=== PATIENT | male | born 1965 | race African-American/Black ===

== ENCOUNTER 2020-12-31 07:17 | Inpatient (IN) | payer MEDICARE ==
[2020-12-31 08:48] LABS: #Eosinphils 0.1 10x3/uL (0.0-0.5); #Monocytes 1.3 10x3/uL (0.0-1.1); #Neutrophils 10.4 10x3/uL (1.5-8.4); %Basophils 0.3 % (0.0-2.0); %Eosinophils 0.8 % (0.0-6.0); %Lymphocytes 7.1 % (18.0-47.0); %Monocytes 9.7 % (0.0-10.0); %Neutrophils 80.9 % (40.0-75.0); Hemoglobin 10.8 g/dL (13.5-17.5); Mean Corpuscular HGB CONC 30.1 g/dL (32.0-36.0); Mean Corpuscular Hemoglobin 30.4 pg (27.0-33.0); Mean Corpuscular Volume 101.1 fl (81.2-95.1); Mean Platelet Volume 10.7 fl (7.4-10.4); Platelet Count 364 10x3/uL (150-450); RBC Distribution Width 15.9 % (11.5-14.5); Red Blood Cell (RBC) Count 3.55 10x6/uL (4.32-5.72); White Blood Cell (WBC) Count 12.9 10x3/uL (3.5-10.5)
[2020-12-31] MEDS ORDERED: Cefepime 2 GM VIAL ONE (08:58)
[2020-12-31 09:01] LABS: CK (CPK) 122 U/L (30-200); CRP (Inflammatory) 17.68 mg/dL (= or < 0.5); Magnesium 2.1 mg/dL (1.6-2.6)
[2020-12-31 09:03] LABS: ALT (SGPT) 7 U/L (8-55); AST (SGOT) 10 U/L (5-34); Albumin 3.7 g/dL (3.5-5.0); Alkaline Phosphatase 84 U/L (40-110); Anion Gap 18 mmol/L (10-20); BUN (Urea Nitrogen) 22 mg/dL (8.4-25.7); Bilirubin, Total 0.4 mg/dL (0.2-1.2); Calc. Creatinine Clearance 0 mL/min (70-130); Calcium 9.8 mg/dL (7.8-10.44); Carbon Dioxide 31 mmol/L (22-29); Chloride 93 mmol/L (98-107); Globulin 5.4 g/dL (2.4-3.5); Glucose 160 mg/dL (70-105); Potassium 3.8 mmol/L (3.5-5.1); Protein, Total 9.1 g/dL (6.0-8.3); Sodium 138 mmol/L (136-145)
[2020-12-31] MEDS ORDERED: Acetaminophen 325 MG TAB PO PRN (10:21)
[2020-12-31] MEDS ORDERED: Ondansetron PF 4 MG/2 ML Vial IVP PRN (10:21)
[2020-12-31] MEDS ORDERED: Senokot S 8.6-50 MG TAB PO PRN (10:21)
[2020-12-31] MEDS ORDERED: Vancomycin HCl 1 GM in Sodium Chloride 0.9% 250 ML 250 ML IVPB SCH (10:45)
[2020-12-31 12:07] LABS: PTT 27.1 sec (22.0-33.0); Prothrombin Time 11.5 sec (9.5-12.1)
[2020-12-31 13:17] LABS: SARS-CoV-2 NAA Rapid Test Not Detected (NotDetected)
[2020-12-31 14:09] VITALS: BMI 32.7
[2020-12-31] MEDS ORDERED: Vancomycin HCl 1.25 GM in Sodium Chloride 0.9% 250 ML 250 ML IVPB SCH (14:45)
[2020-12-31] MEDS ORDERED: Vancomycin HCl 750 MG in Sodium Chloride 0.9% 250 ML 250 ML IVPB SCH (14:45)
[2020-12-31] MEDS ORDERED: Vancomycin 1 GM in Premix Bag 1 BAG IVPB SCH (14:45)
[2020-12-31] MEDS ORDERED: Vancomycin HCl 1.5 GM in Sodium Chloride 0.9% 250 ML 300 ML IVPB SCH (14:45)
[2020-12-31] MEDS ORDERED: HOLD VANCOMYCIN FOR LEVEL >20 FS SCH (14:45)
[2020-12-31] MEDS: Calcium Acetate 667 MG CAP PO SCH ×2 (14:50→16:49)
[2020-12-31] MEDS ORDERED: Heparin 10,000 UNITS/ 10 ML VIAL SLOW IVP PRN (14:57)
[2020-12-31] MEDS ORDERED: Vancomycin HCl 500 MG in Sodium Chloride 0.9% 100 ML IVPB SCH (15:00)
[2020-12-31] MEDS ORDERED: EPOETIN ALFA-EPBX (ESRD) 4,000 UNIT/ML VIAL IVP PRN (15:01)
[2021-01-01] MEDS: Heparin 5,000 UNITS/ML VIAL SC SCH ×3 (02:26→21:37)
[2021-01-01 05:16] LABS: #Eosinphils 0.2 10x3/uL (0.0-0.5); #Monocytes 1.3 10x3/uL (0.0-1.1); #Neutrophils 9.6 10x3/uL (1.5-8.4); %Basophils 0.3 % (0.0-2.0); %Eosinophils 1.5 % (0.0-6.0); %Monocytes 10.2 % (0.0-10.0); Hemoglobin 10.3 g/dL (13.5-17.5); Mean Corpuscular HGB CONC 30.3 g/dL (32.0-36.0); Mean Corpuscular Hemoglobin 30.2 pg (27.0-33.0); Mean Corpuscular Volume 99.7 fl (81.2-95.1); Mean Platelet Volume 10.3 fl (7.4-10.4); Platelet Count 359 10x3/uL (150-450); RBC Distribution Width 15.9 % (11.5-14.5); Red Blood Cell (RBC) Count 3.41 10x6/uL (4.32-5.72); White Blood Cell (WBC) Count 12.5 10x3/uL (3.5-10.5)
[2021-01-01 05:51] LABS: Vancomycin, Random 20.4 ug/mL (See Comment)
[2021-01-01 05:53] LABS: Anion Gap 17 mmol/L (10-20); BUN (Urea Nitrogen) 27 mg/dL (8.4-25.7); Calc. Creatinine Clearance 13 mL/min (70-130); Calcium 9.4 mg/dL (7.8-10.44); Carbon Dioxide 27 mmol/L (22-29); Chloride 96 mmol/L (98-107); Glucose 115 mg/dL (70-105); Potassium 3.5 mmol/L (3.5-5.1); Sodium 136 mmol/L (136-145)
[2021-01-01] MEDS ORDERED: Bupivacaine PF 0.5% 30 ML VIAL ONE (08:29)
[2021-01-01] MEDS ORDERED: Fentanyl 100 MCG/2 ML VIAL ONE ×2 (08:38→09:11)
[2021-01-01] MEDS ORDERED: Ondansetron PF 4 MG/2 ML Vial ONE (08:38)
[2021-01-01] MEDS ORDERED: PROPOFOL 20 ML ONE (08:38)
[2021-01-01] MEDS ORDERED: PHENYLEPHRINE-NS 100 MCG/ML 10 ML SYRINGE ONE (09:20)
[2021-01-01] MEDS: HYDROcodone/Acetaminophen 5/325 mg Tablet PO PRN ×2 (12:51→18:14)
[2021-01-01] MEDS: Calcium Acetate 667 MG CAP PO SCH ×4 (13:13→18:19)
[2021-01-01] MEDS ORDERED: Cefepime 0.5 GM, Admixture Fee 1 EACH in Sodium Chloride 0.9% 100 ML IVPB SCH (15:00)
[2021-01-02 05:22] LABS: ALT (SGPT) Less than 6 U/L (8-55); AST (SGOT) 11 U/L (5-34); Albumin 2.9 g/dL (3.5-5.0); Alkaline Phosphatase 87 U/L (40-110); Anion Gap 14 mmol/L (10-20); BUN (Urea Nitrogen) 16 mg/dL (8.4-25.7); Bilirubin, Total 0.3 mg/dL (0.2-1.2); Calc. Creatinine Clearance 20 mL/min (70-130); Calcium 9.1 mg/dL (7.8-10.44); Carbon Dioxide 29 mmol/L (22-29); Chloride 96 mmol/L (98-107); Globulin 4.5 g/dL (2.4-3.5); Glucose 155 mg/dL (70-105); Potassium 3.9 mmol/L (3.5-5.1); Protein, Total 7.4 g/dL (6.0-8.3); Sodium 135 mmol/L (136-145)
[2021-01-02 05:50] LABS: #Basophils 0.1 10x3/uL (0.0-0.2); #Eosinphils 0.2 10x3/uL (0.0-0.5); #Monocytes 1.3 10x3/uL (0.0-1.1); %Basophils 0.4 % (0.0-2.0); %Eosinophils 1.7 % (0.0-6.0); %Lymphocytes 8.6 % (18.0-47.0); %Monocytes 9.5 % (0.0-10.0); %Neutrophils 78.5 % (40.0-75.0); Hemoglobin 10.1 g/dL (13.5-17.5); Mean Corpuscular HGB CONC 29.5 g/dL (32.0-36.0); Mean Corpuscular Hemoglobin 30.1 pg (27.0-33.0); Mean Corpuscular Volume 101.8 fl (81.2-95.1); Mean Platelet Volume 10.8 fl (7.4-10.4); Platelet Count 345 10x3/uL (150-450); Red Blood Cell (RBC) Count 3.36 10x6/uL (4.32-5.72)
[2021-01-02] MEDS: Calcium Acetate 667 MG CAP PO SCH ×2 (08:02→12:35)
[2021-01-02] MEDS: Heparin 5,000 UNITS/ML VIAL SC SCH (08:02)
[2021-01-02 13:06] VITALS: BP 118/62; TEMP 96.8
== END 2021-01-02 14:53 | disposition home or self-care (01) | DRG 617 ==
LOC: CSHERS 07:17 → CSHTELE 12:59
PROVIDERS: ADMIT Internal Medicine; ATTEND Family Medicine
PROC: 0Y6N0Z4 Detachment at Left Foot, Complete 1st Ray, Open Approach (ICD-10-PCS; principal; 2021-01-01)
PROC: 0Y6N0Z5 Detachment at Left Foot, Complete 2nd Ray, Open Approach (ICD-10-PCS; 2021-01-01)
DX: E11.621 Type 2 diabetes mellitus with foot ulcer (principal); M86.172 Other acute osteomyelitis, left ankle and foot; E11.52 Type 2 diabetes mellitus with diabetic peripheral angiopathy with gangrene; I96 Gangrene, not elsewhere classified; I13.2 Hypertensive heart and chronic kidney disease with heart failure and with stage 5 chronic kidney disease, or end stage renal disease; I50.42 Chronic combined systolic (congestive) and diastolic (congestive) heart failure; N18.6 End stage renal disease; L97.529 Non-pressure chronic ulcer of other part of left foot with unspecified severity; E11.22 Type 2 diabetes mellitus with diabetic chronic kidney disease; Z99.2 Dependence on renal dialysis; E11.40 Type 2 diabetes mellitus with diabetic neuropathy, unspecified; E78.5 Hyperlipidemia, unspecified; D63.1 Anemia in chronic kidney disease
CPT/HCPCS: 36415; 36416; 71045; 80048; 80053; 80202; 82550; 83605; 83735; 85025; 85610; 85652; 85730; 86140; 86850; 86900; 86901; 87040; 87070; 87076; 87077; 87186; 87205; 88305; 90935; 93005; 94760; 96365; 96366; 96367; G0257; J0692; J1644; J2405; J2704; J3010; J3370; J3490; S0020; U0002

== ENCOUNTER 2021-03-22 15:14 | Outpatient (CLI) | payer MEDICARE | END 2021-03-22 15:15 | disposition home or self-care (01) | LOC: CSHCT 15:14 | PROVIDERS: ATTEND Neurological Surgery | DX: I61.9 Nontraumatic intracerebral hemorrhage, unspecified (principal) | CPT/HCPCS: 70450 ==

== ENCOUNTER 2021-04-08 21:00 | Inpatient (IN) | payer MEDICARE, SELFPAY ==
[2021-04-08 21:54] LABS: #Eosinphils 0.1 10x3/uL (0.0-0.5); #Monocytes 0.6 10x3/uL (0.0-1.1); #Neutrophils 5.5 10x3/uL (1.5-8.4); %Basophils 0.4 % (0.0-2.0); %Eosinophils 1.1 % (0.0-6.0); %Lymphocytes 12.8 % (18.0-47.0); %Neutrophils 77.1 % (40.0-75.0); Hemoglobin 7.5 g/dL (13.5-17.5); Mean Corpuscular HGB CONC 30.5 g/dL (32.0-36.0); Mean Corpuscular Hemoglobin 31.1 pg (27.0-33.0); Mean Corpuscular Volume 102.1 fl (81.2-95.1); Mean Platelet Volume 10.9 fl (7.4-10.4); Platelet Count 413 10x3/uL (150-450); RBC Distribution Width 16.7 % (11.5-14.5); Red Blood Cell (RBC) Count 2.41 10x6/uL (4.32-5.72); White Blood Cell (WBC) Count 7.1 10x3/uL (3.5-10.5)
[2021-04-08 22:00] LABS: ALT (SGPT) 20 U/L (8-55); AST (SGOT) 15 U/L (5-34); Albumin 4.2 g/dL (3.5-5.0); Alkaline Phosphatase 86 U/L (40-110); Anion Gap 26 mmol/L (10-20); BUN (Urea Nitrogen) 114 mg/dL (8.4-25.7); Bilirubin, Total 0.7 mg/dL (0.2-1.2); Calc. Creatinine Clearance 0 mL/min (70-130); Calcium 8.4 mg/dL (7.8-10.44); Carbon Dioxide 18 mmol/L (22-29); Chloride 103 mmol/L (98-107); Globulin 4.3 g/dL (2.4-3.5); Glucose 97 mg/dL (70-105); Protein, Total 8.5 g/dL (6.0-8.3); Sodium 140 mmol/L (136-145)
[2021-04-08 22:01] LABS: Potassium 6.9 mmol/L (3.5-5.1)
[2021-04-09 01:23] LABS: Magnesium 2.5 mg/dL (1.6-2.6)
[2021-04-09 01:53] LABS: Hep B Surf Ag Non-Reactive S/CO (NonReactive)
[2021-04-09 01:55] LABS: HBSAg Index 0.22 S/CO (0-0.99)
[2021-04-09] MEDS ORDERED: Prevnar 13-Val Conj/PF 0.5 ML SYRINGE IM ONE (06:00)
[2021-04-09 06:23] VITALS: BMI 31.6
[2021-04-09 08:22] LABS: #Eosinphils 0.1 10x3/uL (0.0-0.5); #Monocytes 0.7 10x3/uL (0.0-1.1); #Neutrophils 4.9 10x3/uL (1.5-8.4); %Basophils 0.4 % (0.0-2.0); %Eosinophils 1.9 % (0.0-6.0); %Lymphocytes 15.8 % (18.0-47.0); %Monocytes 9.6 % (0.0-10.0); %Neutrophils 71.9 % (40.0-75.0); Hemoglobin 8.6 g/dL (13.5-17.5); Mean Corpuscular HGB CONC 31.9 g/dL (32.0-36.0); Mean Corpuscular Hemoglobin 30.9 pg (27.0-33.0); Mean Corpuscular Volume 97.1 fl (81.2-95.1); Mean Platelet Volume 10.3 fl (7.4-10.4); Platelet Count 325 10x3/uL (150-450); RBC Distribution Width 17.1 % (11.5-14.5); Red Blood Cell (RBC) Count 2.78 10x6/uL (4.32-5.72); White Blood Cell (WBC) Count 6.8 10x3/uL (3.5-10.5)
[2021-04-09 08:43] LABS: Anion Gap 19 mmol/L (10-20); BUN (Urea Nitrogen) 58 mg/dL (8.4-25.7); Calc. Creatinine Clearance 10 mL/min (70-130); Calcium 8.3 mg/dL (7.8-10.44); Carbon Dioxide 24 mmol/L (22-29); Chloride 101 mmol/L (98-107); Glucose 83 mg/dL (70-105); Potassium 4.5 mmol/L (3.5-5.1); Sodium 139 mmol/L (136-145)
[2021-04-09] MEDS: Carvedilol 3.125 MG TAB PO SCH (12:23)
[2021-04-09] MEDS: Aspirin 325 mg Enteric Coated Tablet PO SCH (12:23)
[2021-04-09 13:22] LABS: HBSAB Concentration 39.23 mIU/mL; Hep B Surf AB Reactive (NonReactive)
[2021-04-09] MEDS: Heparin 5,000 UNITS/ML VIAL SC SCH ×2 (15:04→20:23)
[2021-04-09 17:25] LABS: INR-International Normal Ratio 1.1; PTT 27.6 sec (22.0-33.0); Prothrombin Time 12.6 sec (9.5-12.1)
[2021-04-09 17:29] LABS: #Eosinphils 0.2 10x3/uL (0.0-0.5); #Monocytes 0.7 10x3/uL (0.0-1.1); #Neutrophils 5.4 10x3/uL (1.5-8.4); %Basophils 0.4 % (0.0-2.0); %Eosinophils 2.1 % (0.0-6.0); %Lymphocytes 10.9 % (18.0-47.0); %Monocytes 9.5 % (0.0-10.0); %Neutrophils 76.5 % (40.0-75.0); Hemoglobin 8.7 g/dL (13.5-17.5); Mean Corpuscular HGB CONC 31.8 g/dL (32.0-36.0); Mean Corpuscular Hemoglobin 31.4 pg (27.0-33.0); Mean Corpuscular Volume 98.9 fl (81.2-95.1); Mean Platelet Volume 10.3 fl (7.4-10.4); Platelet Count 337 10x3/uL (150-450); RBC Distribution Width 17.2 % (11.5-14.5); Red Blood Cell (RBC) Count 2.77 10x6/uL (4.32-5.72); White Blood Cell (WBC) Count 7.1 10x3/uL (3.5-10.5)
[2021-04-09 17:39] LABS: ALT (SGPT) 17 U/L (8-55); AST (SGOT) 12 U/L (5-34); Albumin 3.5 g/dL (3.5-5.0); Alkaline Phosphatase 74 U/L (40-110); Anion Gap 18 mmol/L (10-20); BUN (Urea Nitrogen) 60 mg/dL (8.4-25.7); Bilirubin, Total 0.8 mg/dL (0.2-1.2); Calc. Creatinine Clearance 10 mL/min (70-130); Carbon Dioxide 23 mmol/L (22-29); Chloride 100 mmol/L (98-107); Globulin 3.6 g/dL (2.4-3.5); Glucose 107 mg/dL (70-105); Potassium 5.4 mmol/L (3.5-5.1); Protein, Total 7.1 g/dL (6.0-8.3); Sodium 136 mmol/L (136-145)
[2021-04-09 17:56] LABS: SARS-CoV-2 NAA Rapid Test Not Detected (NotDetected)
[2021-04-09 18:24] LABS: Actual Bicarbonate (HCO3a) 25.4 mEq/L (22-28); Base Excess (BEa) 1.1 mEq/L (-2.0 to +3.0); CO2 Tension 39.2 mmHg (35.0-45.0); Calcium, Ionized (arterial) 0.98 mmol/L (1.12-1.30); Carboxyhemoglobin (COHb) 1.5 gm% (0.0-3.0); Hemoglobin (Hb) 10.5 g/dL (14.0-18.0); O2 Tension (PaO2), arterial 66.8 mmHg (80.0-100.0); Potassium - ABG Lab 5.2 mmol/L (3.70-5.30); Puncture Site RRA; pH, Arterial 7.43 (7.35-7.45)
[2021-04-09 21:42] LABS: SARS-CoV-2 PCR by NAA Not Detected (NotDetected)
[2021-04-10] MEDS: Simvastatin 10 MG TAB PO SCH ×2 (00:37→21:34)
[2021-04-10] MEDS: Heparin 5,000 UNITS/ML VIAL SC SCH ×5 (00:37→21:34)
[2021-04-10 04:48] LABS: ALT (SGPT) 16 U/L (8-55); AST (SGOT) 14 U/L (5-34); Albumin 3.4 g/dL (3.5-5.0); Alkaline Phosphatase 77 U/L (40-110); Anion Gap 16 mmol/L (10-20); BUN (Urea Nitrogen) 26 mg/dL (8.4-25.7); Bilirubin, Total 0.8 mg/dL (0.2-1.2); Calc. Creatinine Clearance 16 mL/min (70-130); Calcium 8.3 mg/dL (7.8-10.44); Carbon Dioxide 25 mmol/L (22-29); Chloride 100 mmol/L (98-107); Globulin 3.4 g/dL (2.4-3.5); Glucose 111 mg/dL (70-105); Potassium 4.2 mmol/L (3.5-5.1); Protein, Total 6.8 g/dL (6.0-8.3); Sodium 137 mmol/L (136-145)
[2021-04-10 05:01] LABS: #Eosinphils 0.2 10x3/uL (0.0-0.5); #Monocytes 0.7 10x3/uL (0.0-1.1); %Basophils 0.5 % (0.0-2.0); %Eosinophils 2.1 % (0.0-6.0); %Lymphocytes 8.9 % (18.0-47.0); %Neutrophils 79.1 % (40.0-75.0); Hemoglobin 9.4 g/dL (13.5-17.5); Mean Corpuscular HGB CONC 31.8 g/dL (32.0-36.0); Mean Corpuscular Hemoglobin 30.7 pg (27.0-33.0); Mean Corpuscular Volume 96.7 fl (81.2-95.1); Mean Platelet Volume 10.2 fl (7.4-10.4); Platelet Count 342 10x3/uL (150-450); RBC Distribution Width 16.7 % (11.5-14.5); Red Blood Cell (RBC) Count 3.06 10x6/uL (4.32-5.72); White Blood Cell (WBC) Count 7.6 10x3/uL (3.5-10.5)
[2021-04-10] MEDS: Carvedilol 3.125 MG TAB PO SCH (08:12)
[2021-04-10] MEDS: Aspirin 325 mg Enteric Coated Tablet PO SCH (08:12)
[2021-04-11 05:12] LABS: Anion Gap 16 mmol/L (10-20); BUN (Urea Nitrogen) 33 mg/dL (8.4-25.7); Calc. Creatinine Clearance 13 mL/min (70-130); Carbon Dioxide 25 mmol/L (22-29); Chloride 100 mmol/L (98-107); Glucose 91 mg/dL (70-105); Potassium 4.5 mmol/L (3.5-5.1); Sodium 136 mmol/L (136-145)
[2021-04-11] MEDS: Heparin 5,000 UNITS/ML VIAL SC SCH (08:16)
[2021-04-11] MEDS: Aspirin 325 mg Enteric Coated Tablet PO SCH (08:16)
[2021-04-11] MEDS: Carvedilol 3.125 MG TAB PO SCH (08:16)
[2021-04-11 08:54] VITALS: BP 152/77; TEMP 98
== END 2021-04-11 14:45 | disposition home or self-care (01) | DRG 640 ==
LOC: CSHERS 21:00 → CSHTELE 04-09 00:31 → OBSVTOIN 04-09 00:39 → INTOOBSV 04-09 00:39 → CSHTELE 04-09 00:39
PROVIDERS: ADMIT Family Medicine; ATTEND Internal Medicine
PROC: 5A1D70Z Performance of Urinary Filtration, Intermittent, Less than 6 Hours Per Day (ICD-10-PCS; principal; 2021-04-09)
DX: E87.70 Fluid overload, unspecified (principal); N18.6 End stage renal disease; I12.0 Hypertensive chronic kidney disease with stage 5 chronic kidney disease or end stage renal disease; G93.49 Other encephalopathy; Z20.822 Contact with and (suspected) exposure to COVID-19; E87.5 Hyperkalemia; D63.1 Anemia in chronic kidney disease; E11.51 Type 2 diabetes mellitus with diabetic peripheral angiopathy without gangrene; R19.7 Diarrhea, unspecified; E87.2 Acidosis; E11.22 Type 2 diabetes mellitus with diabetic chronic kidney disease; Z88.0 Allergy status to penicillin; Z79.899 Other long term (current) drug therapy; Z79.82 Long term (current) use of aspirin; Z99.2 Dependence on renal dialysis; Z89.422 Acquired absence of other left toe(s); Z91.15 Patient's noncompliance with renal dialysis
CPT/HCPCS: 36415; 36416; 36430; 36600; 71045; 74176; 80048; 80053; 82140; 82805; 83735; 83880; 84443; 85025; 85610; 85730; 86706; 86850; 86900; 86901; 87045; 87046; 87081; 87177; 87340; 87427; 87449; 90935; 93005; 93010; 94660; 94760; G0257; G0378; J1644; P9016; U0002; U0003; U0005

== ENCOUNTER 2021-05-31 11:01 | Inpatient (IN) | payer MEDICARE, SELFPAY ==
[2021-05-31 12:10] LABS: Bilirubin Neg (Negative); Blood, Urine Negative (Negative); Clarity Clear (Clear); Glucose, Urine (Dipstick) 50 mg/dL (Negative); Ketone, Urine Negative (Negative); Leukocyte Negative (Negative); Nitrite Negative (Negative); Protein, Urine (Dipstick) 100 mg/dl (Neg-Trace); Specific Gravity, Urine 1.015 (1.002-1.036); Urobilinogen Normal mg/dL (Less than 2)
[2021-05-31 12:10] LABS: #Eosinphils 0.2 10x3/uL (0.0-0.5); #Monocytes 0.7 10x3/uL (0.0-1.1); %Basophils 0.3 % (0.0-2.0); %Eosinophils 1.5 % (0.0-6.0); %Lymphocytes 10.1 % (18.0-47.0); %Monocytes 7.1 % (0.0-10.0); %Neutrophils 80.5 % (40.0-75.0); Hemoglobin 8.9 g/dL (13.5-17.5); Mean Corpuscular HGB CONC 30.7 g/dL (32.0-36.0); Mean Corpuscular Hemoglobin 30.5 pg (27.0-33.0); Mean Corpuscular Volume 99.3 fl (81.2-95.1); Mean Platelet Volume 10.3 fl (7.4-10.4); Platelet Count 441 10x3/uL (150-450); RBC Distribution Width 16.5 % (11.5-14.5); Red Blood Cell (RBC) Count 2.92 10x6/uL (4.32-5.72); White Blood Cell (WBC) Count 9.9 10x3/uL (3.5-10.5)
[2021-05-31 12:17] LABS: Bacteria/HPF None Seen HPF (None Seen); RBC/HPF 0-3 HPF (0-3); Squamous Epithelial None Seen HPF (0-3); WBC/HPF 0-3 HPF (0-3)
[2021-05-31 12:21] LABS: ALT (SGPT) 7 U/L (8-55); AST (SGOT) 8 U/L (5-34); Albumin 4.1 g/dL (3.5-5.0); Alkaline Phosphatase 70 U/L (40-110); Anion Gap 20 mmol/L (10-20); BUN (Urea Nitrogen) 41 mg/dL (8.4-25.7); Bilirubin, Total 0.9 mg/dL (0.2-1.2); Calc. Creatinine Clearance 0 mL/min (70-130); Calcium 10.7 mg/dL (7.8-10.44); Carbon Dioxide 29 mmol/L (22-29); Chloride 95 mmol/L (98-107); Globulin 4.7 g/dL (2.4-3.5); Glucose 93 mg/dL (70-105); Potassium 4.5 mmol/L (3.5-5.1); Protein, Total 8.8 g/dL (6.0-8.3); Sodium 139 mmol/L (136-145)
[2021-05-31] MEDS ORDERED: Ondansetron ODT 4 MG TAB PO PRN (15:14)
[2021-05-31] MEDS ORDERED: Acetaminophen 650 MG Suppository PR PRN (15:14)
[2021-05-31] MEDS ORDERED: Acetaminophen 325 MG TAB PO PRN (15:14)
[2021-05-31] MEDS ORDERED: Vancomycin 1 GM in Premix Bag 1 BAG IVPB SCH (15:30)
[2021-05-31 15:48] LABS: SARS-CoV-2 NAA Rapid Test Not Detected (NotDetected)
[2021-05-31] MEDS ORDERED: VANCOMYCIN 1.75 GM/350 ML BAG 1.75 GM in Premix Bag 1 BAG IVPB SCH (16:15)
[2021-05-31] MEDS ORDERED: Cefepime 2 GM VIAL ONE (16:17)
[2021-05-31] MEDS ORDERED: Dextrose 50% Abboject 50 ML SYRINGE SLOW IVP PRN (17:05)
[2021-05-31] MEDS ORDERED: Insulin Regular 300 UNITS/3 ML VIAL SC PRN ×2 (17:05)
[2021-05-31] MEDS ORDERED: Dextrose 5% in Water 1,000 ML IV PRN (17:05)
[2021-05-31] MEDS ORDERED: hydrALAZINE 20 MG/ML VIAL SLOW IVP PRN (17:07)
[2021-05-31] MEDS ORDERED: Nitroglycerin 2% Ointment 1 INCH/1 GM Packet TOP SCH (21:00)
[2021-05-31] MEDS ORDERED: Amlodipine 5 MG TAB PO SCH (21:00)
[2021-05-31] MEDS ORDERED: Nitroglycerin 2% Ointment 1 INCH/1 GM Packet ONE (21:36)
[2021-05-31] MEDS ORDERED: Amlodipine 5 MG TAB ONE (21:37)
[2021-05-31] MEDS ORDERED: metroNIDAZOLE 500 MG/100 ML BAG ONE (21:37)
[2021-05-31] MEDS ORDERED: Heparin 5,000 UNITS/ML VIAL ONE (21:37)
[2021-05-31] MEDS: Heparin 5,000 UNITS/ML VIAL SC SCH (21:40)
[2021-05-31] MEDS: metroNIDAZOLE 500 MG in Premix Bag 1 BAG IVPB SCH (21:53)
[2021-06-01 04:25] LABS: #Basophils 0.1 10x3/uL (0.0-0.2); #Eosinphils 0.3 10x3/uL (0.0-0.5); #Monocytes 0.7 10x3/uL (0.0-1.1); #Neutrophils 7.4 10x3/uL (1.5-8.4); %Basophils 0.5 % (0.0-2.0); %Eosinophils 3.1 % (0.0-6.0); %Lymphocytes 10.5 % (18.0-47.0); %Monocytes 7.2 % (0.0-10.0); %Neutrophils 78.3 % (40.0-75.0); Mean Corpuscular HGB CONC 29.4 g/dL (32.0-36.0); Mean Corpuscular Hemoglobin 29.6 pg (27.0-33.0); Mean Corpuscular Volume 100.7 fl (81.2-95.1); Mean Platelet Volume 10.1 fl (7.4-10.4); Platelet Count 461 10x3/uL (150-450); RBC Distribution Width 16.3 % (11.5-14.5); White Blood Cell (WBC) Count 9.4 10x3/uL (3.5-10.5)
[2021-06-01 04:48] LABS: Anion Gap 21 mmol/L (10-20); BUN (Urea Nitrogen) 45 mg/dL (8.4-25.7); Calc. Creatinine Clearance 0 mL/min (70-130); Calcium 9.9 mg/dL (7.8-10.44); Carbon Dioxide 26 mmol/L (22-29); Chloride 97 mmol/L (98-107); Glucose 110 mg/dL (70-105); Potassium 4.5 mmol/L (3.5-5.1); Sodium 139 mmol/L (136-145)
[2021-06-01] MEDS ORDERED: metroNIDAZOLE 500 MG/100 ML BAG ONE (05:25)
[2021-06-01] MEDS: metroNIDAZOLE 500 MG in Premix Bag 1 BAG IVPB SCH ×3 (06:00→22:34)
[2021-06-01 06:08] LABS: Platelet Morphology Comment Appears Increased
[2021-06-01 06:09] LABS: Anisocytosis SLIGHT = 6-15 cells (100X) (0-5/hpf); Elliptocytes SLIGHT = 2-5 cells (100X) (0-1/hpf); Hypochromia SLIGHT = 6-15 cells (100X) (0-5/hpf); Macrocytosis SLIGHT = 6-15 cells (100X) (0-5/hpf); Microcytosis SLIGHT = 6-15 cells (100X) (0-5/hpf)
[2021-06-01] MEDS: Heparin 5,000 UNITS/ML VIAL SC SCH ×2 (12:31→21:33)
[2021-06-01 13:22] LABS: Hemoglobin A1c 4.9 % (4.0-6.0)
[2021-06-01] MEDS ORDERED: EPOETIN ALFA-EPBX (ESRD) 4,000 UNIT/ML VIAL IVP PRN (13:34)
[2021-06-01] MEDS: Cefepime 0.5 GM, Admixture Fee 1 EACH in Sodium Chloride 0.9% 100 ML IVPB SCH (17:39)
[2021-06-01] MEDS ORDERED: FLU VACC QS2021-22(6MOS UP)/PF 60 MCG/0.5 ML SYRINGE IM ONE (19:00)
[2021-06-01] MEDS ORDERED: Vancomycin 1 GM in Premix Bag 1 BAG IVPB SCH (19:45)
[2021-06-01] MEDS ORDERED: Vancomycin HCl 500 MG in Sodium Chloride 0.9% 100 ML IVPB SCH (19:45)
[2021-06-01] MEDS ORDERED: Vancomycin HCl 1.25 GM in Sodium Chloride 0.9% 250 ML 250 ML IVPB SCH (19:45)
[2021-06-01] MEDS ORDERED: Vancomycin HCl 750 MG in Sodium Chloride 0.9% 250 ML 250 ML IVPB SCH (19:45)
[2021-06-01] MEDS ORDERED: HOLD VANCOMYCIN FOR LEVEL >20 FS SCH (19:45)
[2021-06-01] MEDS ORDERED: Simvastatin 10 MG TAB PO SCH (21:00)
[2021-06-01] MEDS: Ondansetron PF 4 MG/2 ML Vial IVP PRN (21:43)
[2021-06-01 21:53] LABS: Vancomycin, Random 17.4 ug/mL (See Comment)
[2021-06-02] MEDS: Ondansetron PF 4 MG/2 ML Vial IVP PRN (00:07)
[2021-06-02 04:05] LABS: #Eosinphils 0.1 10x3/uL (0.0-0.5); #Monocytes 0.8 10x3/uL (0.0-1.1); #Neutrophils 6.9 10x3/uL (1.5-8.4); %Basophils 0.3 % (0.0-2.0); %Eosinophils 1.6 % (0.0-6.0); %Lymphocytes 9.5 % (18.0-47.0); %Monocytes 8.9 % (0.0-10.0); Hemoglobin 8.7 g/dL (13.5-17.5); Mean Corpuscular HGB CONC 28.5 g/dL (32.0-36.0); Mean Corpuscular Hemoglobin 29.4 pg (27.0-33.0); Mean Platelet Volume 10.3 fl (7.4-10.4); Platelet Count 414 10x3/uL (150-450); Red Blood Cell (RBC) Count 2.96 10x6/uL (4.32-5.72); White Blood Cell (WBC) Count 8.8 10x3/uL (3.5-10.5)
[2021-06-02 04:23] LABS: Anion Gap 17 mmol/L (10-20); BUN (Urea Nitrogen) 20 mg/dL (8.4-25.7); Calc. Creatinine Clearance 14 mL/min (70-130); Calcium 9.6 mg/dL (7.8-10.44); Carbon Dioxide 27 mmol/L (22-29); Chloride 96 mmol/L (98-107); Glucose 100 mg/dL (70-105); Potassium 4.4 mmol/L (3.5-5.1); Sodium 136 mmol/L (136-145)
[2021-06-02] MEDS: metroNIDAZOLE 500 MG in Premix Bag 1 BAG IVPB SCH ×3 (05:38→22:37)
[2021-06-02 06:28] LABS: Platelet Morphology Comment Appears Adequate
[2021-06-02 06:29] LABS: Elliptocytes SLIGHT = 2-5 cells (100X) (0-1/hpf); Hypochromia SLIGHT = 6-15 cells (100X) (0-5/hpf); Macrocytosis SLIGHT = 6-15 cells (100X) (0-5/hpf); Microcytosis SLIGHT = 6-15 cells (100X) (0-5/hpf)
[2021-06-02 06:30] LABS: Anisocytosis SLIGHT = 6-15 cells (100X) (0-5/hpf)
[2021-06-02] MEDS ORDERED: Ondansetron PF 4 MG/2 ML Vial ONE (07:52)
[2021-06-02 08:19] LABS: #Eosinphils 0.2 10x3/uL (0.0-0.5); #Monocytes 1.2 10x3/uL (0.0-1.1); #Neutrophils 6.7 10x3/uL (1.5-8.4); %Basophils 0.3 % (0.0-2.0); %Lymphocytes 12.5 % (18.0-47.0); %Monocytes 12.8 % (0.0-10.0); %Neutrophils 71.9 % (40.0-75.0); Hemoglobin 8.3 g/dL (13.5-17.5); Mean Corpuscular HGB CONC 29.4 g/dL (32.0-36.0); Mean Corpuscular Hemoglobin 29.2 pg (27.0-33.0); Mean Corpuscular Volume 99.3 fl (81.2-95.1); Mean Platelet Volume 9.6 fl (7.4-10.4); Platelet Count 434 10x3/uL (150-450); RBC Distribution Width 15.9 % (11.5-14.5); Red Blood Cell (RBC) Count 2.84 10x6/uL (4.32-5.72); White Blood Cell (WBC) Count 9.4 10x3/uL (3.5-10.5)
[2021-06-02 08:22] LABS: INR-International Normal Ratio 1.1; PTT 28.6 sec (22.0-33.0); Prothrombin Time 12.2 sec (9.5-12.1)
[2021-06-02] MEDS: Aspirin 300 MG Suppository PR SCH (08:46)
[2021-06-02] MEDS: Aspirin 81 mg Enteric Coated Tablet PO SCH (08:47)
[2021-06-02] MEDS: Heparin 5,000 UNITS/ML VIAL SC SCH ×2 (08:47→21:44)
[2021-06-02 09:54] LABS: Syphilis Antibody Nonreactive (Nonreactive); Syphilis Antibody Index 0.11 S/CO (<1.00 Non-Reactive)
[2021-06-02] MEDS ORDERED: metroNIDAZOLE 500 MG/100 ML BAG ONE (13:20)
[2021-06-02] MEDS: Cefepime 0.5 GM, Admixture Fee 1 EACH in Sodium Chloride 0.9% 100 ML IVPB SCH (14:47)
[2021-06-02] MEDS ORDERED: Haloperidol Lactate 5 MG/ML VIAL IM PRN (20:59)
[2021-06-02] MEDS: Rosuvastatin 20 MG TAB PO SCH (21:44)
[2021-06-03 04:07] LABS: #Basophils 0.1 10x3/uL (0.0-0.2); #Eosinphils 0.2 10x3/uL (0.0-0.5); #Monocytes 0.8 10x3/uL (0.0-1.1); #Neutrophils 5.8 10x3/uL (1.5-8.4); %Basophils 0.6 % (0.0-2.0); %Eosinophils 2.6 % (0.0-6.0); %Lymphocytes 10.2 % (18.0-47.0); %Monocytes 10.1 % (0.0-10.0); %Neutrophils 75.9 % (40.0-75.0); Hemoglobin 9.5 g/dL (13.5-17.5); Mean Corpuscular HGB CONC 28.7 g/dL (32.0-36.0); Mean Corpuscular Hemoglobin 29.6 pg (27.0-33.0); Mean Corpuscular Volume 103.1 fl (81.2-95.1); Platelet Count 449 10x3/uL (150-450); Red Blood Cell (RBC) Count 3.21 10x6/uL (4.32-5.72); White Blood Cell (WBC) Count 7.7 10x3/uL (3.5-10.5)
[2021-06-03 04:14] LABS: Vancomycin, Random 14.5 ug/mL (See Comment)
[2021-06-03 04:16] LABS: Anion Gap 21 mmol/L (10-20); BUN (Urea Nitrogen) 27 mg/dL (8.4-25.7); Calc. Creatinine Clearance 11 mL/min (70-130); Calcium 9.1 mg/dL (7.8-10.44); Carbon Dioxide 24 mmol/L (22-29); Chloride 95 mmol/L (98-107); Cholesterol 157 mg/dl (< 200 Desired); Glucose 112 mg/dL (70-105); HDL Cholesterol 26 mg/dL (>60 Neg Risk); LDL Cholesterol, Calculated 108 mg/dL; Potassium 5.1 mmol/L (3.5-5.1); Sodium 135 mmol/L (136-145); Triglycerides 113 mg/dL (Less than 150)
[2021-06-03] MEDS: metroNIDAZOLE 500 MG in Premix Bag 1 BAG IVPB SCH ×3 (05:57→21:56)
[2021-06-03] MEDS ORDERED: Vancomycin HCl 750 MG in Sodium Chloride 0.9% 250 ML 250 ML IVPB SCH (08:30)
[2021-06-03] MEDS: Heparin 5,000 UNITS/ML VIAL SC SCH ×2 (10:22→21:03)
[2021-06-03] MEDS: Aspirin 81 mg Enteric Coated Tablet PO SCH (10:22)
[2021-06-03] MEDS: Aspirin 300 MG Suppository PR SCH (10:22)
[2021-06-03] MEDS ORDERED: Heparin 10,000 UNITS/ 10 ML VIAL FS PRN (10:29)
[2021-06-03] MEDS: Cefepime 0.5 GM, Admixture Fee 1 EACH in Sodium Chloride 0.9% 100 ML IVPB SCH (16:47)
[2021-06-03] MEDS: Rosuvastatin 20 MG TAB PO SCH (21:02)
[2021-06-04 05:29] LABS: #Eosinphils 0.3 10x3/uL (0.0-0.5); #Monocytes 1.1 10x3/uL (0.0-1.1); %Basophils 0.5 % (0.0-2.0); %Eosinophils 3.5 % (0.0-6.0); %Lymphocytes 15.4 % (18.0-47.0); %Monocytes 14.3 % (0.0-10.0); %Neutrophils 65.6 % (40.0-75.0); Hemoglobin 8.9 g/dL (13.5-17.5); Mean Corpuscular HGB CONC 30.1 g/dL (32.0-36.0); Mean Corpuscular Hemoglobin 29.5 pg (27.0-33.0); Mean Platelet Volume 9.3 fl (7.4-10.4); Platelet Count 418 10x3/uL (150-450); Red Blood Cell (RBC) Count 3.02 10x6/uL (4.32-5.72); White Blood Cell (WBC) Count 7.6 10x3/uL (3.5-10.5)
[2021-06-04 05:59] LABS: Anion Gap 14 mmol/L (10-20); BUN (Urea Nitrogen) 15 mg/dL (8.4-25.7); Calc. Creatinine Clearance 16 mL/min (70-130); Calcium 9.1 mg/dL (7.8-10.44); Carbon Dioxide 28 mmol/L (22-29); Chloride 97 mmol/L (98-107); Glucose 108 mg/dL (70-105); Potassium 4.4 mmol/L (3.5-5.1); Sodium 135 mmol/L (136-145)
[2021-06-04] MEDS: metroNIDAZOLE 500 MG in Premix Bag 1 BAG IVPB SCH ×3 (06:19→21:31)
[2021-06-04] MEDS ORDERED: Carvedilol 3.125 MG TAB PO SCH (08:00)
[2021-06-04] MEDS: Aspirin 81 mg Enteric Coated Tablet PO SCH (08:51)
[2021-06-04] MEDS: Heparin 5,000 UNITS/ML VIAL SC SCH ×2 (08:52→21:31)
[2021-06-04] MEDS: Aspirin 300 MG Suppository PR SCH (09:13)
[2021-06-04] MEDS: Carvedilol 3.125 MG TAB PO SCH (18:09)
[2021-06-04] MEDS: Cefepime 0.5 GM, Admixture Fee 1 EACH in Sodium Chloride 0.9% 100 ML IVPB SCH (18:09)
[2021-06-04] MEDS: Rosuvastatin 20 MG TAB PO SCH (21:32)
[2021-06-05 04:46] LABS: #Basophils 0.1 10x3/uL (0.0-0.2); #Eosinphils 0.3 10x3/uL (0.0-0.5); #Monocytes 1.1 10x3/uL (0.0-1.1); %Basophils 0.7 % (0.0-2.0); %Eosinophils 2.9 % (0.0-6.0); %Lymphocytes 15.4 % (18.0-47.0); %Monocytes 12.9 % (0.0-10.0); %Neutrophils 67.4 % (40.0-75.0); Hemoglobin 8.9 g/dL (13.5-17.5); Mean Corpuscular HGB CONC 30.3 g/dL (32.0-36.0); Mean Corpuscular Hemoglobin 29.7 pg (27.0-33.0); Mean Platelet Volume 9.4 fl (7.4-10.4); Platelet Count 442 10x3/uL (150-450); RBC Distribution Width 16.2 % (11.5-14.5); White Blood Cell (WBC) Count 8.9 10x3/uL (3.5-10.5)
[2021-06-05 05:16] LABS: Anion Gap 15 mmol/L (10-20); BUN (Urea Nitrogen) 22 mg/dL (8.4-25.7); Calc. Creatinine Clearance 13 mL/min (70-130); Carbon Dioxide 25 mmol/L (22-29); Chloride 99 mmol/L (98-107); Glucose 86 mg/dL (70-105); Potassium 4.3 mmol/L (3.5-5.1); Sodium 135 mmol/L (136-145)
[2021-06-05] MEDS: metroNIDAZOLE 500 MG in Premix Bag 1 BAG IVPB SCH ×2 (06:05→14:57)
[2021-06-05] MEDS: Carvedilol 3.125 MG TAB PO SCH ×2 (08:46→16:21)
[2021-06-05] MEDS: Aspirin 81 mg Enteric Coated Tablet PO SCH (08:46)
[2021-06-05] MEDS: Heparin 5,000 UNITS/ML VIAL SC SCH ×2 (08:46→21:48)
[2021-06-05] MEDS: Aspirin 300 MG Suppository PR SCH (08:46)
[2021-06-05] MEDS ORDERED: Vancomycin HCl 750 MG in Sodium Chloride 0.9% 250 ML 250 ML IVPB SCH (09:00)
[2021-06-05] MEDS: Cefepime 0.5 GM, Admixture Fee 1 EACH in Sodium Chloride 0.9% 100 ML IVPB SCH (16:22)
[2021-06-05] MEDS: metroNIDAZOLE 500 MG TAB PO SCH (21:49)
[2021-06-05] MEDS: Rosuvastatin 20 MG TAB PO SCH (21:49)
[2021-06-06] MEDS: metroNIDAZOLE 500 MG TAB PO SCH ×3 (05:36→22:24)
[2021-06-06 05:48] LABS: Anion Gap 15 mmol/L (10-20); BUN (Urea Nitrogen) 9 mg/dL (8.4-25.7); Calc. Creatinine Clearance 19 mL/min (70-130); Calcium 9.2 mg/dL (7.8-10.44); Carbon Dioxide 26 mmol/L (22-29); Chloride 97 mmol/L (98-107); Glucose 91 mg/dL (70-105); Sodium 134 mmol/L (136-145)
[2021-06-06 05:49] LABS: Hemoglobin 9.1 g/dL (13.5-17.5); Mean Corpuscular HGB CONC 30.7 g/dL (32.0-36.0); Mean Corpuscular Hemoglobin 29.9 pg (27.0-33.0); Mean Corpuscular Volume 97.4 fl (81.2-95.1); Mean Platelet Volume 9.4 fl (7.4-10.4); Platelet Count 403 10x3/uL (150-450); RBC Distribution Width 16.4 % (11.5-14.5); Red Blood Cell (RBC) Count 3.04 10x6/uL (4.32-5.72); White Blood Cell (WBC) Count 7.9 10x3/uL (3.5-10.5)
[2021-06-06 07:04] LABS: MDiff Complete? YES; Platelet Morphology Comment Appears Adequate; RBC Morphology Normal
[2021-06-06 07:06] LABS: Band 3 % (5-11); Eosinophils 2 % (0-10); Lymphocytes 19 % (21-51); Monocytes 17 % (0-10); Neutrophil 59 % (42-75)
[2021-06-06] MEDS: Aspirin 81 mg Enteric Coated Tablet PO SCH (09:04)
[2021-06-06] MEDS: Carvedilol 3.125 MG TAB PO SCH ×2 (09:05→17:23)
[2021-06-06] MEDS: Heparin 5,000 UNITS/ML VIAL SC SCH ×2 (09:05→22:24)
[2021-06-06] MEDS: Aspirin 300 MG Suppository PR SCH (10:20)
[2021-06-06] MEDS: Rosuvastatin 20 MG TAB PO SCH (22:24)
[2021-06-07] MEDS: metroNIDAZOLE 500 MG TAB PO SCH ×3 (05:52→21:29)
[2021-06-07] MEDS: Carvedilol 3.125 MG TAB PO SCH ×2 (09:05→17:29)
[2021-06-07] MEDS: Heparin 5,000 UNITS/ML VIAL SC SCH ×2 (09:06→21:29)
[2021-06-07] MEDS: Aspirin 81 mg Enteric Coated Tablet PO SCH (09:06)
[2021-06-07] MEDS: Aspirin 300 MG Suppository PR SCH (09:07)
[2021-06-07 20:40] LABS: SARS-CoV-2 PCR by NAA Not Detected (NotDetected)
[2021-06-07] MEDS: Rosuvastatin 20 MG TAB PO SCH (21:29)
[2021-06-08 05:34] LABS: Vancomycin, Random 11.5 ug/mL (See Comment)
[2021-06-08] MEDS: metroNIDAZOLE 500 MG TAB PO SCH ×3 (05:44→21:37)
[2021-06-08] MEDS ORDERED: Vancomycin HCl 750 MG in Sodium Chloride 0.9% 250 ML 250 ML IVPB SCH (06:45)
[2021-06-08] MEDS ORDERED: Vancomycin HCl 1.25 GM in Sodium Chloride 0.9% 250 ML 250 ML IVPB SCH (06:45)
[2021-06-08] MEDS ORDERED: Vancomycin HCl 1.5 GM in Sodium Chloride 0.9% 250 ML 300 ML IVPB SCH (06:45)
[2021-06-08] MEDS ORDERED: HOLD VANCOMYCIN FOR LEVEL >20 FS SCH (06:45)
[2021-06-08] MEDS ORDERED: Vancomycin 1 GM in Premix Bag 1 BAG IVPB SCH (06:45)
[2021-06-08] MEDS ORDERED: Vancomycin HCl 1 GM in Sodium Chloride 0.9% 250 ML 250 ML IVPB SCH (07:00)
[2021-06-08] MEDS: Aspirin 81 mg Enteric Coated Tablet PO SCH (16:52)
[2021-06-08] MEDS: Carvedilol 3.125 MG TAB PO SCH ×2 (16:53→16:54)
[2021-06-08] MEDS: Aspirin 300 MG Suppository PR SCH (16:54)
[2021-06-08] MEDS: Heparin 5,000 UNITS/ML VIAL SC SCH ×2 (16:55→21:37)
[2021-06-08] MEDS: Rosuvastatin 20 MG TAB PO SCH (21:37)
[2021-06-09] MEDS: metroNIDAZOLE 500 MG TAB PO SCH ×3 (05:40→21:58)
[2021-06-09] MEDS: Carvedilol 3.125 MG TAB PO SCH ×2 (08:48→17:46)
[2021-06-09] MEDS: Aspirin 81 mg Enteric Coated Tablet PO SCH (08:49)
[2021-06-09] MEDS: Heparin 5,000 UNITS/ML VIAL SC SCH ×2 (09:12→21:58)
[2021-06-09 10:05] VITALS: BMI 34.3
[2021-06-09] MEDS: Rosuvastatin 20 MG TAB PO SCH (21:58)
[2021-06-10 05:44] LABS: Vancomycin, Random 11.9 ug/mL (See Comment)
[2021-06-10] MEDS: metroNIDAZOLE 500 MG TAB PO SCH ×2 (05:55→13:07)
[2021-06-10] MEDS ORDERED: Vancomycin HCl 1 GM in Sodium Chloride 0.9% 250 ML 250 ML IVPB SCH (13:00)
[2021-06-10] MEDS: Aspirin 81 mg Enteric Coated Tablet PO SCH (13:08)
[2021-06-10] MEDS: Heparin 5,000 UNITS/ML VIAL SC SCH (13:08)
[2021-06-10] MEDS: Carvedilol 3.125 MG TAB PO SCH (13:08)
[2021-06-10 16:30] VITALS: BP 129/60; TEMP 97.4
== END 2021-06-10 16:36 | DRG 637 ==
LOC: CSHERS 11:01 → CSHERHOLD 20:19 → CSHTELE 06-01 11:12
PROVIDERS: ADMIT Family Medicine; ATTEND Hospitalist
PROC: 5A1D70Z Performance of Urinary Filtration, Intermittent, Less than 6 Hours Per Day (ICD-10-PCS; principal; 2021-06-10)
DX: E11.69 Type 2 diabetes mellitus with other specified complication (principal); J96.01 Acute respiratory failure with hypoxia; I12.0 Hypertensive chronic kidney disease with stage 5 chronic kidney disease or end stage renal disease; L03.116 Cellulitis of left lower limb; I42.9 Cardiomyopathy, unspecified; I50.42 Chronic combined systolic (congestive) and diastolic (congestive) heart failure; M86.172 Other acute osteomyelitis, left ankle and foot; N18.6 End stage renal disease; Z20.822 Contact with and (suspected) exposure to COVID-19; I16.0 Hypertensive urgency; E11.22 Type 2 diabetes mellitus with diabetic chronic kidney disease; G45.9 Transient cerebral ischemic attack, unspecified; E11.51 Type 2 diabetes mellitus with diabetic peripheral angiopathy without gangrene; D63.1 Anemia in chronic kidney disease; E78.5 Hyperlipidemia, unspecified; Z86.73 Personal history of transient ischemic attack (TIA), and cerebral infarction without residual deficits; Z88.0 Allergy status to penicillin; Z79.82 Long term (current) use of aspirin; Z99.2 Dependence on renal dialysis
CPT/HCPCS: 36415; 36416; 70450; 70496; 70498; 70551; 71045; 80048; 80053; 80061; 80202; 81003; 81015; 83036; 83605; 85025; 85610; 85730; 86780; 87040; 87086; 87149; 90935; 93005; 93010; 93306; 94760; 96374; 96375; G0257; J0692; J1644; J2405; J3370; J3490; J7050; Q5105; U0002; U0003; U0005

== ENCOUNTER 2021-08-31 09:05 | Inpatient (IN) | payer MEDICARE ==
[2021-08-31 09:41] LABS: Actual Bicarbonate (HCO3v) 26 mEq/L (22-28); Base Excess 1.8 mEq/L (-2.0 to +3.0); Calcium, Ionized (venous) 1.11 mmol/L (1.16-1.32); Chloride (VBG) 98 mmol/L (98-106); Potassium (VBG) 4.35 mmol/L (3.70-5.30); Puncture Site Other Site; RapidComm Collect By CBL; Sodium 137.2 mmol/L (133-146); pH (venous) 7.46 (7.32-7.43)
[2021-08-31 09:42] LABS: INR-International Normal Ratio 1.1; PTT 28.4 sec (22.0-33.0); Prothrombin Time 11.9 sec (9.5-12.1)
[2021-08-31 09:47] LABS: ALT (SGPT) 9 U/L (8-55); AST (SGOT) 14 U/L (5-34); Albumin 3.7 g/dL (3.5-5.0); Alkaline Phosphatase 45 U/L (40-110); Anion Gap 20 mmol/L (10-20); BUN (Urea Nitrogen) 43 mg/dL (8.4-25.7); Bilirubin, Total 1.1 mg/dL (0.2-1.2); Calc. Creatinine Clearance 0 mL/min (70-130); Calcium 9.9 mg/dL (7.8-10.44); Carbon Dioxide 27 mmol/L (22-29); Chloride 98 mmol/L (98-107); Globulin 3.9 g/dL (2.4-3.5); Glucose 98 mg/dL (70-105); Magnesium 2.3 mg/dL (1.6-2.6); Potassium 4.4 mmol/L (3.5-5.1); Protein, Total 7.6 g/dL (6.0-8.3); Sodium 141 mmol/L (136-145)
[2021-08-31 09:48] LABS: #Eosinphils 0.2 10x3/uL (0.0-0.5); #Monocytes 0.8 10x3/uL (0.0-1.1); #Neutrophils 5.1 10x3/uL (1.5-8.4); %Basophils 0.4 % (0.0-2.0); %Lymphocytes 9.9 % (18.0-47.0); %Monocytes 11.1 % (0.0-10.0); %Neutrophils 75.3 % (40.0-75.0); Hemoglobin 9.7 g/dL (13.5-17.5); Mean Corpuscular HGB CONC 31.3 g/dL (32.0-36.0); Mean Corpuscular Hemoglobin 29.3 pg (27.0-33.0); Mean Corpuscular Volume 93.7 fl (81.2-95.1); Mean Platelet Volume 9.9 fl (7.4-10.4); Platelet Count 366 10x3/uL (150-450); RBC Distribution Width 16.8 % (11.5-14.5); Red Blood Cell (RBC) Count 3.31 10x6/uL (4.32-5.72); White Blood Cell (WBC) Count 6.8 10x3/uL (3.5-10.5)
[2021-08-31 10:09] LABS: CKMB 1.6 ng/mL (0-6.6)
[2021-08-31 10:57] LABS: Bilirubin Neg (Negative); Blood, Urine 50 (Negative); Clarity Clear (Clear); Glucose, Urine (Dipstick) 50 mg/dL (Negative); Ketone, Urine Negative (Negative); Leukocyte Negative (Negative); Nitrite Negative (Negative); Protein, Urine (Dipstick) 100 mg/dl (Neg-Trace); Urobilinogen Normal mg/dL (Less than 2)
[2021-08-31 11:07] LABS: Bacteria/HPF None Seen HPF (None Seen); Squamous Epithelial None Seen HPF (0-3); WBC/HPF 0-3 HPF (0-3)
[2021-08-31] MEDS ORDERED: Acetaminophen 650 MG Suppository PR PRN (12:10)
[2021-08-31] MEDS ORDERED: Acetaminophen 325 MG TAB PO PRN (12:10)
[2021-08-31] MEDS ORDERED: EPOETIN ALFA-EPBX (ESRD) 4,000 UNIT/ML VIAL IVP SCH (12:30)
[2021-08-31] MEDS ORDERED: Epoetin (ESRD) 20,000 UNITS/ML IVP SCH (12:45)
[2021-08-31 12:46] LABS: Troponin I 0.095 ng/mL (< 0.028)
[2021-08-31] MEDS ORDERED: Dextrose 5% in Water 1,000 ML IV PRN (13:04)
[2021-08-31] MEDS ORDERED: Dextrose 50% Abboject 50 ML SYRINGE SLOW IVP PRN (13:04)
[2021-08-31] MEDS ORDERED: HumaLOG 300 UNITS/3 ML VIAL SC PRN ×2 (13:04)
[2021-08-31 16:16] LABS: Troponin I 0.094 ng/mL (< 0.028)
[2021-08-31 19:46] VITALS: BMI 26.6
[2021-08-31] MEDS ORDERED: Labetalol HCl 100 MG/20 ML VIAL SLOW IVP SCH (21:00)
[2021-08-31] MEDS: Heparin 5,000 UNITS/ML VIAL SC SCH ×2 (21:23→21:42)
[2021-08-31] MEDS: Epoetin (ESRD) 20,000 UNITS/ML IVP SCH (21:23)
[2021-08-31 22:59] LABS: SARS-CoV-2 PCR by NAA Not Detected (NotDetected)
[2021-08-31] MEDS ORDERED: cloNIDine 0.1 MG TAB PO SCH (23:45)
[2021-09-01 05:19] LABS: #Eosinphils 0.2 10x3/uL (0.0-0.5); #Monocytes 0.7 10x3/uL (0.0-1.1); #Neutrophils 3.1 10x3/uL (1.5-8.4); %Basophils 0.8 % (0.0-2.0); %Eosinophils 4.3 % (0.0-6.0); %Lymphocytes 17.6 % (18.0-47.0); %Monocytes 14.1 % (0.0-10.0); Hemoglobin 9.8 g/dL (13.5-17.5); Mean Corpuscular HGB CONC 30.7 g/dL (32.0-36.0); Mean Corpuscular Hemoglobin 28.6 pg (27.0-33.0); Mean Platelet Volume 9.6 fl (7.4-10.4); Platelet Count 348 10x3/uL (150-450); RBC Distribution Width 16.1 % (11.5-14.5); Red Blood Cell (RBC) Count 3.43 10x6/uL (4.32-5.72); White Blood Cell (WBC) Count 4.9 10x3/uL (3.5-10.5)
[2021-09-01 05:34] LABS: ALT (SGPT) 8 U/L (8-55); AST (SGOT) 10 U/L (5-34); Albumin 3.1 g/dL (3.5-5.0); Alkaline Phosphatase 46 U/L (40-110); Anion Gap 17 mmol/L (10-20); BUN (Urea Nitrogen) 20 mg/dL (8.4-25.7); Calc. Creatinine Clearance 15 mL/min (70-130); Calcium 8.7 mg/dL (7.8-10.44); Carbon Dioxide 27 mmol/L (22-29); Chloride 98 mmol/L (98-107); Globulin 3.5 g/dL (2.4-3.5); Glucose 77 mg/dL (70-105); Potassium 4.1 mmol/L (3.5-5.1); Protein, Total 6.6 g/dL (6.0-8.3); Sodium 138 mmol/L (136-145)
[2021-09-01] MEDS ORDERED: hydrALAZINE 20 MG/ML VIAL SLOW IVP PRN (07:43)
[2021-09-01] MEDS: Heparin 5,000 UNITS/ML VIAL SC SCH ×3 (11:00→22:24)
[2021-09-01] MEDS ORDERED: Aspirin 81 mg Enteric Coated Tablet PO SCH ×2 (16:30→17:00)
[2021-09-01] MEDS ORDERED: Aspirin 325 mg Enteric Coated Tablet PO SCH (16:45)
[2021-09-01] MEDS: Atorvastatin Calcium 40 MG TAB PO SCH (22:23)
[2021-09-02 05:01] LABS: ALT (SGPT) 7 U/L (8-55); AST (SGOT) 10 U/L (5-34); Albumin 3.2 g/dL (3.5-5.0); Alkaline Phosphatase 48 U/L (40-110); Anion Gap 19 mmol/L (10-20); BUN (Urea Nitrogen) 28 mg/dL (8.4-25.7); Bilirubin, Total 0.8 mg/dL (0.2-1.2); Calc. Creatinine Clearance 12 mL/min (70-130); Calcium 9.3 mg/dL (7.8-10.44); Carbon Dioxide 26 mmol/L (22-29); Cardiac Risk 6.4 (Less than 4.5); Chloride 98 mmol/L (98-107); Cholesterol 160 mg/dl (< 200 Desired); Globulin 3.7 g/dL (2.4-3.5); Glucose 84 mg/dL (70-105); HDL Cholesterol 25 mg/dL (>60 Neg Risk); LDL Cholesterol, Calculated 111 mg/dL; Magnesium 2.2 mg/dL (1.6-2.6); Potassium 4.2 mmol/L (3.5-5.1); Protein, Total 6.9 g/dL (6.0-8.3); Sodium 139 mmol/L (136-145); Triglycerides 119 mg/dL (Less than 150)
[2021-09-02 05:26] LABS: Syphilis Antibody Nonreactive (Nonreactive); Syphilis Antibody Index 0.06 S/CO (<1.00 Non-Reactive)
[2021-09-02 07:51] LABS: #Eosinphils 0.2 10x3/uL (0.0-0.5); #Monocytes 0.7 10x3/uL (0.0-1.1); #Neutrophils 3.8 10x3/uL (1.5-8.4); %Basophils 0.5 % (0.0-2.0); %Eosinophils 3.7 % (0.0-6.0); %Lymphocytes 16.4 % (18.0-47.0); %Monocytes 12.6 % (0.0-10.0); %Neutrophils 66.5 % (40.0-75.0); Hemoglobin 11.1 g/dL (13.5-17.5); Mean Corpuscular HGB CONC 31.6 g/dL (32.0-36.0); Mean Corpuscular Hemoglobin 29.1 pg (27.0-33.0); Mean Corpuscular Volume 91.9 fl (81.2-95.1); Mean Platelet Volume 10.5 fl (7.4-10.4); Platelet Count 411 10x3/uL (150-450); RBC Distribution Width 16.2 % (11.5-14.5); Red Blood Cell (RBC) Count 3.82 10x6/uL (4.32-5.72); White Blood Cell (WBC) Count 5.7 10x3/uL (3.5-10.5)
[2021-09-02] MEDS ORDERED: Aspirin 81 mg Enteric Coated Tablet PO SCH (09:00)
[2021-09-02] MEDS ORDERED: Aspirin 325 MG TAB PO SCH (09:00)
[2021-09-02] MEDS: Heparin 5,000 UNITS/ML VIAL SC SCH ×3 (11:58→21:34)
[2021-09-02 12:33] LABS: Hemoglobin A1c 4.9 % (4.0-6.0)
[2021-09-02] MEDS: Epoetin (ESRD) 20,000 UNITS/ML IVP SCH (15:32)
[2021-09-02] MEDS: Aspirin 81 mg Enteric Coated Tablet PO SCH (17:42)
[2021-09-02] MEDS ORDERED: Isosorbide Dinitrate 20 MG TAB PO SCH (21:00)
[2021-09-02] MEDS: Carvedilol 3.125 MG TAB PO SCH (21:33)
[2021-09-02] MEDS: hydrALAZINE 25 MG TAB PO SCH (21:33)
[2021-09-02] MEDS: Atorvastatin Calcium 40 MG TAB PO SCH (21:34)
[2021-09-03 06:55] LABS: Hemoglobin 12.6 g/dL (13.5-17.5); Mean Corpuscular HGB CONC 31.3 g/dL (32.0-36.0); Mean Corpuscular Volume 92.6 fl (81.2-95.1); Mean Platelet Volume 10.3 fl (7.4-10.4); Platelet Count 402 10x3/uL (150-450); RBC Distribution Width 15.9 % (11.5-14.5); Red Blood Cell (RBC) Count 4.35 10x6/uL (4.32-5.72); White Blood Cell (WBC) Count 5.1 10x3/uL (3.5-10.5)
[2021-09-03 07:10] LABS: ALT (SGPT) 9 U/L (8-55); AST (SGOT) 18 U/L (5-34); Albumin 3.5 g/dL (3.5-5.0); Alkaline Phosphatase 54 U/L (40-110); Anion Gap 22 mmol/L (10-20); BUN (Urea Nitrogen) 15 mg/dL (8.4-25.7); Bilirubin, Total 0.8 mg/dL (0.2-1.2); Calc. Creatinine Clearance 17 mL/min (70-130); Calcium 9.4 mg/dL (7.8-10.44); Carbon Dioxide 23 mmol/L (22-29); Chloride 98 mmol/L (98-107); Globulin 4.3 g/dL (2.4-3.5); Glucose 80 mg/dL (70-105); Magnesium 2.2 mg/dL (1.6-2.6); Potassium 4.5 mmol/L (3.5-5.1); Protein, Total 7.8 g/dL (6.0-8.3); Sodium 138 mmol/L (136-145)
[2021-09-03 07:36] LABS: MDiff Complete? YES
[2021-09-03 07:57] LABS: Eosinophils 3 % (0-10); Lymphocytes 23 % (21-51); Monocytes 12 % (0-10); Neutrophil 62 % (42-75); Platelet Morphology Comment Appears Adequate
[2021-09-03 07:58] LABS: RBC Morphology Normal
[2021-09-03] MEDS: Heparin 5,000 UNITS/ML VIAL SC SCH ×3 (09:07→21:50)
[2021-09-03] MEDS: Carvedilol 3.125 MG TAB PO SCH ×2 (09:07→16:05)
[2021-09-03] MEDS: Aspirin 81 mg Enteric Coated Tablet PO SCH (09:07)
[2021-09-03] MEDS: hydrALAZINE 25 MG TAB PO SCH ×2 (09:07→16:05)
[2021-09-03 09:53] LABS: HIV (1/2) Antibody/Antigen Non-Reactive (NonReactive); HIV 1/2 INDEX 0.08 S/CO (<1.00)
[2021-09-03] MEDS: Isosorbide Dinitrate 20 MG TAB PO SCH ×2 (16:05→21:51)
[2021-09-03] MEDS: Atorvastatin Calcium 40 MG TAB PO SCH (21:49)
[2021-09-04 05:45] LABS: Hemoglobin 11.2 g/dL (13.5-17.5); Mean Corpuscular HGB CONC 31.4 g/dL (32.0-36.0); Mean Corpuscular Hemoglobin 28.7 pg (27.0-33.0); Mean Corpuscular Volume 91.5 fl (81.2-95.1); Mean Platelet Volume 9.8 fl (7.4-10.4); Platelet Count 401 10x3/uL (150-450); RBC Distribution Width 16.1 % (11.5-14.5); White Blood Cell (WBC) Count 4.8 10x3/uL (3.5-10.5)
[2021-09-04 06:03] LABS: MDiff Complete? YES
[2021-09-04 06:07] LABS: Eosinophils 5 % (0-10); Lymphocytes 27 % (21-51); Monocytes 22 % (0-10); Neutrophil 44 % (42-75); Reactive Lymphocytes 2 % (0-10)
[2021-09-04 06:08] LABS: Platelet Morphology Comment Appears Adequate; RBC Morphology Normal
[2021-09-04 06:27] LABS: ALT (SGPT) 7 U/L (8-55); AST (SGOT) 9 U/L (5-34); Albumin 3.3 g/dL (3.5-5.0); Alkaline Phosphatase 50 U/L (40-110); Anion Gap 17 mmol/L (10-20); BUN (Urea Nitrogen) 23 mg/dL (8.4-25.7); Bilirubin, Total 0.6 mg/dL (0.2-1.2); Calc. Creatinine Clearance 13 mL/min (70-130); Calcium 9.4 mg/dL (7.8-10.44); Carbon Dioxide 26 mmol/L (22-29); Chloride 98 mmol/L (98-107); Globulin 3.9 g/dL (2.4-3.5); Glucose 95 mg/dL (70-105); Magnesium 2.2 mg/dL (1.6-2.6); Potassium 4.2 mmol/L (3.5-5.1); Protein, Total 7.2 g/dL (6.0-8.3); Sodium 137 mmol/L (136-145)
[2021-09-04] MEDS: Heparin 5,000 UNITS/ML VIAL SC SCH ×3 (09:03→20:56)
[2021-09-04] MEDS: Isosorbide Dinitrate 20 MG TAB PO SCH ×3 (09:03→20:55)
[2021-09-04] MEDS: Carvedilol 3.125 MG TAB PO SCH ×2 (09:03→17:07)
[2021-09-04] MEDS: hydrALAZINE 25 MG TAB PO SCH ×2 (09:03→20:56)
[2021-09-04] MEDS: Aspirin 81 mg Enteric Coated Tablet PO SCH (09:03)
[2021-09-04] MEDS: Epoetin (ESRD) 20,000 UNITS/ML IVP SCH (16:14)
[2021-09-04] MEDS: Atorvastatin Calcium 40 MG TAB PO SCH (20:56)
[2021-09-05 05:48] LABS: ALT (SGPT) 7 U/L (8-55); AST (SGOT) 11 U/L (5-34); Albumin 3.6 g/dL (3.5-5.0); Alkaline Phosphatase 49 U/L (40-110); Anion Gap 18 mmol/L (10-20); BUN (Urea Nitrogen) 12 mg/dL (8.4-25.7); Bilirubin, Total 0.6 mg/dL (0.2-1.2); Calc. Creatinine Clearance 19 mL/min (70-130); Calcium 9.6 mg/dL (7.8-10.44); Carbon Dioxide 28 mmol/L (22-29); Chloride 96 mmol/L (98-107); Globulin 4.1 g/dL (2.4-3.5); Glucose 87 mg/dL (70-105); Magnesium 2.1 mg/dL (1.6-2.6); Potassium 3.8 mmol/L (3.5-5.1); Protein, Total 7.7 g/dL (6.0-8.3); Sodium 138 mmol/L (136-145)
[2021-09-05 05:51] LABS: Mean Corpuscular HGB CONC 30.2 g/dL (32.0-36.0); Mean Corpuscular Hemoglobin 28.4 pg (27.0-33.0); Mean Corpuscular Volume 94.1 fl (81.2-95.1); Mean Platelet Volume 9.9 fl (7.4-10.4); Platelet Count 417 10x3/uL (150-450); RBC Distribution Width 16.2 % (11.5-14.5); Red Blood Cell (RBC) Count 4.23 10x6/uL (4.32-5.72); White Blood Cell (WBC) Count 4.6 10x3/uL (3.5-10.5)
[2021-09-05 06:12] LABS: Band 2 % (5-11); Eosinophils 3 % (0-10); Lymphocytes 25 % (21-51); Monocytes 18 % (0-10)
[2021-09-05 06:14] LABS: Platelet Morphology Comment Appears Adequate; RBC Morphology Normal
[2021-09-05 06:57] LABS: MDiff Complete? YES; Neutrophil 52 % (42-75)
[2021-09-05] MEDS: hydrALAZINE 25 MG TAB PO SCH ×2 (09:20→20:43)
[2021-09-05] MEDS: Heparin 5,000 UNITS/ML VIAL SC SCH ×3 (09:20→20:43)
[2021-09-05] MEDS: Carvedilol 3.125 MG TAB PO SCH ×2 (09:20→16:50)
[2021-09-05] MEDS: Isosorbide Dinitrate 20 MG TAB PO SCH ×3 (09:20→20:42)
[2021-09-05] MEDS: Aspirin 81 mg Enteric Coated Tablet PO SCH (09:20)
[2021-09-05] MEDS: Atorvastatin Calcium 40 MG TAB PO SCH (20:42)
[2021-09-06 05:48] LABS: Hemoglobin 12.6 g/dL (13.5-17.5); Mean Corpuscular HGB CONC 30.7 g/dL (32.0-36.0); Mean Corpuscular Hemoglobin 28.6 pg (27.0-33.0); Mean Corpuscular Volume 93.2 fl (81.2-95.1); Platelet Count 358 10x3/uL (150-450); RBC Distribution Width 16.1 % (11.5-14.5); Red Blood Cell (RBC) Count 4.41 10x6/uL (4.32-5.72); White Blood Cell (WBC) Count 5.9 10x3/uL (3.5-10.5)
[2021-09-06 06:34] LABS: MDiff Complete? YES; Manual Diff?? YES
[2021-09-06 06:45] LABS: Eosinophils 5 % (0-10); Lymphocytes 21 % (21-51); Monocytes 15 % (0-10); Neutrophil 54 % (42-75); Reactive Lymphocytes 1 % (0-10)
[2021-09-06 06:46] LABS: Anisocytosis SLIGHT = 6-15 cells (100X) (0-5/hpf); Platelet Morphology Comment Appears Adequate
[2021-09-06 06:47] LABS: Elliptocytes SLIGHT = 2-5 cells (100X) (0-1/hpf); Macrocytosis SLIGHT = 6-15 cells (100X) (0-5/hpf); Microcytosis SLIGHT = 6-15 cells (100X) (0-5/hpf); Polychromasia SLIGHT = 2-3 cells (100X) (0-2/hpf)
[2021-09-06 08:12] LABS: ALT (SGPT) 14 U/L (8-55); AST (SGOT) 35 U/L (5-34); Albumin 3.6 g/dL (3.5-5.0); Alkaline Phosphatase 94 U/L (40-110); Anion Gap 24 mmol/L (10-20); BUN (Urea Nitrogen) 20 mg/dL (8.4-25.7); Bilirubin, Total 0.6 mg/dL (0.2-1.2); Calc. Creatinine Clearance 13 mL/min (70-130); Calcium 9.7 mg/dL (7.8-10.44); Carbon Dioxide 18 mmol/L (22-29); Chloride 100 mmol/L (98-107); Globulin 4.3 g/dL (2.4-3.5); Glucose 88 mg/dL (70-105); Magnesium 2.3 mg/dL (1.6-2.6); Potassium 5.4 mmol/L (3.5-5.1); Protein, Total 7.9 g/dL (6.0-8.3); Sodium 137 mmol/L (136-145)
[2021-09-06] MEDS: hydrALAZINE 25 MG TAB PO SCH (08:42)
[2021-09-06] MEDS: Isosorbide Dinitrate 20 MG TAB PO SCH ×2 (08:42→17:35)
[2021-09-06] MEDS: Carvedilol 3.125 MG TAB PO SCH ×2 (08:42→17:35)
[2021-09-06] MEDS: Heparin 5,000 UNITS/ML VIAL SC SCH ×2 (08:42→17:35)
[2021-09-06] MEDS: Aspirin 81 mg Enteric Coated Tablet PO SCH (08:42)
[2021-09-07 00:30] VITALS: BP 116/58; TEMP 96.2
== END 2021-09-06 20:20 | DRG 64 ==
LOC: SUATTDRO 09:05 → CSHERS 09:05 → INTOOBSV 16:43 → CSHTELE 16:43 → OBSVTOIN 09-01 14:48
PROVIDERS: ADMIT Emergency Medicine; ATTEND Hospitalist
PROC: 5A1D70Z Performance of Urinary Filtration, Intermittent, Less than 6 Hours Per Day (ICD-10-PCS; principal; 2021-08-31)
DX: I63.89 Other cerebral infarction (principal); G93.41 Metabolic encephalopathy; N18.6 End stage renal disease; I13.2 Hypertensive heart and chronic kidney disease with heart failure and with stage 5 chronic kidney disease, or end stage renal disease; I50.42 Chronic combined systolic (congestive) and diastolic (congestive) heart failure; I42.9 Cardiomyopathy, unspecified; E87.2 Acidosis; E11.22 Type 2 diabetes mellitus with diabetic chronic kidney disease; E78.5 Hyperlipidemia, unspecified; E11.51 Type 2 diabetes mellitus with diabetic peripheral angiopathy without gangrene; I65.22 Occlusion and stenosis of left carotid artery; R47.01 Aphasia; E87.5 Hyperkalemia; D63.1 Anemia in chronic kidney disease; R29.714 NIHSS score 14; R29.810 Facial weakness; R79.89 Other specified abnormal findings of blood chemistry; Z20.822 Contact with and (suspected) exposure to COVID-19; Z99.2 Dependence on renal dialysis; Z86.73 Personal history of transient ischemic attack (TIA), and cerebral infarction without residual deficits; Z89.412 Acquired absence of left great toe; Z89.411 Acquired absence of right great toe; Z88.0 Allergy status to penicillin; Z79.82 Long term (current) use of aspirin; Z79.899 Other long term (current) drug therapy
CPT/HCPCS: 36415; 36416; 70450; 70551; 71045; 74230; 80053; 80061; 81003; 81015; 82553; 82607; 82746; 82805; 83036; 83605; 83735; 83880; 84443; 84484; 85025; 85610; 85730; 86780; 87389; 90935; 93005; 93306; 93880; 94760; 96374; G0257; G0378; J0360; J1644; Q4081; Q5105; U0003; U0005